=== PATIENT | female | born 1985 | race African-American/Black ===

== ENCOUNTER 2024-06-01 03:06 | Emergency (ER) | payer OTHER ==
[~2024-06-01] VITALS: Ht 165.1 cm; Wt 62.0 kg
[2024-06-01 03:09] VITALS: BP 106/73; PULSE 100; RESP 16; TEMP 98.2; O2SAT 100
== END 2024-06-01 10:06 | disposition left against medical advice (07) ==
LOC: ER 03:06
DX: F41.9 Anxiety disorder, unspecified (principal); Z53.21 Procedure and treatment not carried out due to patient leaving prior to being seen by health care provider